=== PATIENT | male | born 1995 | race Caucasian/White ===

== ENCOUNTER 2024-02-14 17:58 | Emergency (ER) | payer OTHER, SELFPAY ==
[2024-02-14 18:03] VITALS: BP 142/70; PULSE 85; O2SAT 98
[2024-02-14 18:05] VITALS: RESP 16; BMI 25.8
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
[2024-02-14] MEDS: Bacitracin Oint 0.9 GM PACKET 1 APPL TOPICAL (18:34)
--- NOTE | 2024-02-14 18:58 | PC.NURSE ---
Pt seen by Dr Flores, okay to leave. Abrasion to left cheek cleaned, bacitracin applied with bandaid. Pt increasingly uncooperative. Steady on feet even noted jogging at one point. Escorted out by security. Aware of warnings and risk, verbally understands and reports will return for worsening sx. Speech is clear.
[2024-02-14 19:00] VITALS: BP 00/00; PULSE 0; RESP 16; TEMP -17.7; TEMP 0; O2SAT 0
== END 2024-02-14 19:01 | disposition left against medical advice (07) ==
LOC: HO.ED 18:48
PROVIDERS: Emergency Provider Emergency Medicine Emergency Medical Services
DX: S00.81XA Abrasion of other part of head, initial encounter (principal); W19.XXXA Unspecified fall, initial encounter; Y93.9 Activity, unspecified; Y92.9 Unspecified place or not applicable; Y99.9 Unspecified external cause status
CPT/HCPCS: 99282; 99283